=== PATIENT | male | born 1995 | race Caucasian/White ===

== ENCOUNTER 2018-02-06 19:26 | Emergency (ER) | payer SELFPAY ==
[~2018-02-06] VITALS: Ht 180.3 cm; Wt 90.7 kg
[2018-02-06 19:34] VITALS: Ht 180.3 cm; Wt 90.7 kg
[2018-02-06 21:37] VITALS: BP 126/80
== END 2018-02-06 21:37 | disposition home or self-care (01) ==
LOC: ED 19:26
DX: R04.0 Epistaxis (principal)